=== PATIENT | female | born 1955 | race Caucasian/White ===

== ENCOUNTER 2019-09-10 19:10 | Inpatient (IN) | payer BC ==
[~2019-09-10] VITALS: Ht 142.2 cm; Wt 75.8 kg
[2019-09-10] MEDS ORDERED: IV RINGERS SOLUTION,LACTATED 1,000 ML IV SCH (19:14)
--- NOTE | 2019-09-10 19:31 | PHYS DOC ---
Past History Past Medical History: Anxiety, Arthritis, Bronchitis, Constipation, Dementia, Diabetes, Fibromyalgia, Hypertension, Hypothyroid, Schizophrenia Past Surgical History: Other Smoking: Cigarettes General Adult EDM: Chief Complaint: MEDICAL CLEARANCE HPI: HPI: "..They sent me here to get checked out.. I am weak.. and have been falling... " " I ve been seeing cats...they are not there..." " My cats are Wiskers and Sathish..."..." I am hearing things.. too" Patient is a 64 year old female who presents with above hx and complaints of weakness and falls. Pt. sent to [facility] for Behavioral issues. Pt. recent Dx of Dementia 1 yr ago, and frequent falls. Pt. also being evaluated for possible Hydrocephalus. Pt. in past year per her sister having increase gait problems, falls, incontinence of urine, and now increased behavior issues. Pt. has Schizo affective with Bipolar mood swings. Pt. recently admitted to [facility] after a fall. Pt. has seen Neuro Surgery at Dr. Ju Ricardo for the possible eval and need of shunt for Normal Pressure Hydrocephalus. Pt.has not had spinal tap of evaluation. Pt. recently having increase hallucinations of cats, paranoid delusions, auditory hallucination telling her she should not do, increased anxiety, . Pt. follows with Dr. Michele psychiatry at [facility], [facility], [facility], and DR. Sampson Wade. Patient has an active problem of the left of acquired hypothyroidism hypertension, recurrent major depressive disorder, chronic low back pain with sciatica, insomnia, obesity, memory deficits, and differential type schizophrenia, diabetes type 2, tobacco abuse, possible normal pressure hydrocephalus, bipolar affective disorder, frequent falls, dysphasia, smoking history of 40 pack years, obesity and deconditioning. Patient recently has had increase behavior issues consisting of verbal abuse, threats, depression and anxiety.. Patient sent to [facility] for admission to Senior behavioral unit under . Pt. COVID - TEST 08/29/19= NOT DETECTED. Review of Systems: Review of Systems: Constitutional: Denies fever or chills Eyes: Denies change in visual acuity HENT: Denies nasal congestion or sore throat Respiratory: Denies cough or shortness of breath Cardiovascular: Denies chest pain or edema GI: Denies abdominal pain, nausea, vomiting, bloody stools or diarrhea : Denies dysuria Musculoskeletal: Complains of lower back pain and joint pain Integument: Denies rash Neurologic: Denies headache,. Complains of generalized weakness and falling Endocrine: Denies polyuria or polydipsia Lymphatic: Denies swollen glands Psychiatric: Complains of depression, anxiety and hallucinations both visual and auditory Heart Score: HEART Score for Chest Pain: HEART Score for Chest Pain Response (Comments) Value History Slighlty/Non-Suspicious 0 ECG Normal 0 Age >45 - < 65 1 Risk Factors 1 or 2 Risk Factors 1 Troponin < Normal Limit 0 Total 2 Risk Factors: Risk Factors: DM, Current or recent (<one month) smoker, HTN, HLP, family history of CAD, obesity. Risk Scores: Score 0 - 3: 2.5% MACE over next 6 weeks - Discharge Home Score 4 - 6: 20.3% MACE over next 6 weeks - Admit for Clinical Observation Score 7 - 10: 72.7% MACE over next 6 weeks - Early Invasive Strategies Family History: Family History: Noncontributory to presentation Current Medications: Current Meds: See nursing for home meds Current Medications Medications (Trade) Dose Ordered Sig/Luis Start Time Stop Time Status Last Admin Dose Admin Lactated Ringer's 1,000 ml @ 100 mls/hr Q10H 09/10/19 19:14 09/11/19 05:13 UNV Allergies: Allergies: Allergic to penicillin Physical Exam: PE: Constitutional: Mild distress, non-toxic appearance. [] HENT: Normocephalic, atraumatic, bilateral external ears normal, oropharynx moist, no oral exudates, nose normal. [] Eyes: PERRLA, EOMI, conjunctiva normal, no discharge. [Glasses. Neck: Normal range of motion, no tenderness, supple, no stridor. [] Cardiovascular:Heart rate regular rhythm, no murmur [], PMI to Lt. Lungs & Thorax: Bilateral breath sounds equal at apexes with scattered wheeze on auscultation [] Abdomen: Bowel sounds normal, soft, no tenderness, no masses, no pulsatile masses. Obese Skin: Warm, dry, no erythema, no rash. [] Back: No tenderness, no CVA tenderness. [] Extremities: No tenderness, no cyanosis, no clubbing, ROM intact, bilateral ankle edema. [] Neurologic: Alert and oriented X 3, moves extremities on request, has wide gait, has distal sensory, no gross focal deficits noted. [] Psychologic: Affect anxious , some obvious memory issues, mood normal. Reports seeing cats that are not there and reports hearing voices EKG: EKG: My interpretation EKG shows a sinus rhythm at 68 bpm. No findings of acute STEMI of contralateral changes. [] Radiology/Procedures: Radiology/Procedures: [ Signed PATIENT: TRUDY BRANNON MACCOUNT: [id number] : 1955 LOCATION: ER AGE: 64 SEX: F EXAM STATUS: REG ER ORD. PHYSICIAN: DANITZA SHEARER MD REASON: dyspnea, eval . Aortic findings on non- contrast of lumbar PROCEDURE: CT ANGIO CHEST ABD PELVIS Exam: CT of chest, abdomen and pelvis with contrast INDICATION: Dyspnea TECHNIQUE: Sequential axial images through the chest, abdomen and pelvis obtained following the administration of 100 mL of Omni 350 IV contrast. Sagittal and coronal reformatted images were reconstructed from the axial data and reviewed. 3-D reformatted images were reconstructed from the axial data and reviewed. Comparisons: CT lumbar spine to the FINDINGS: Thoracic aorta has a normal course and caliber. No enlarged mediastinal lymph nodes. Heart size is normal. No pericardial effusion. Thoracic aorta has a normal course and caliber. Pulmonary artery is not enlarged. Airways are patent. Mild bronchial wall thickening is noted. Strandy opacities at dependent portion lungs likely representing atelectasis. No suspicious lung nodules are identified. Trace left-sided pleural effusion. Liver, spleen, and pancreas are unremarkable. There is a macroscopic fat-containing lesion within the right adrenal gland representing a myelolipoma. Kidneys demonstrate symmetric enhancement. No perinephric inflammation or hydronephrosis. No renal or ureteral calculi. Bladder is distended and appears thin-walled. Uterus is nonenlarged. No abnormal adnexal mass. Large and small bowel are unremarkable. Appendix is normal. No free intra-abdominal air or fluid. No obstruction. There is atherosclerotic plaque in the infrarenal abdominal aorta causing a short segment of moderate stenosis. Otherwise, the abdominal arterial vasculature is patent without evidence of stenosis, occlusion or aneurysm. No dissection. No enlarged intra-abdominal lymph nodes are identified. No suspicious osseous lesions or acute fractures. IMPRESSION: 1. No evidence for aortic aneurysm or dissection. 2. There is a focal area of moderate stenosis at the infrarenal abdominal aorta, likely correlating with abnormality on lumbar spine CT 3. Trace left-sided pleural effusion. 4. Other incidental findings as described above. Exposure: One or more of the following in the visualized dose reduction techniques were utilized for this examination: 1. Automated exposure control 2. Adjustment of the MA and/or KV according to patient size 3. Use of iterative of reconstructive technique Electronically signed by: Jaylan Malave MD (09/10/2019 10:16 PM) [id number] DICTATED AND SIGNED BY: JAYLAN MALAVE MD DATE: 09/10/192215 CC: DANITZA SHEARER MD; TAY WADE MD ~ ][place] [address] IMAGING REPORT Signed PATIENT: TRUDY BRANNON MACCOUNT: [id number] : 1955 LOCATION: ER AGE: 64 SEX: F EXAM STATUS: REG ER ORD. PHYSICIAN: DANITZA SHEARER MD REASON: Recent fall, lower back pain PROCEDURE: CT LUMBAR SPINE WO CONTRAST STUDY: 1. CT head without contrast 2. CT cervical spine without contrast 3. CT lumbar spine without contrast INDICATION: Fall. Low back pain. Neck pain. Mental status change. COMPARISON: None. TECHNIQUE: Axial CT imaging of the head, cervical spine and lumbar spine performed without the use of contrast. Coronal and sagittal reformats were obtained. One or more of the following individualized dose reduction techniques were utilized for this examination: 1. Automated exposure control 2. Adjustment of the mA and/or kV according to patient size 3. Use of iterative reconstruction technique. FINDINGS: Head: No acute intracranial hemorrhage. Schroeder-white matter differentiation is maintained. Cystic focus at the midline as seen on image 13 series 2, favored more likely volume averaging with the third ventricle than a pineal cyst. No midline shift. Ventriculomegaly on a background of parenchymal volume loss. Relative crowding of the sulci at the vertex. Intracranial atherosclerotic calcifications. White matter findings which are nonspecific but frequent seen in the setting of chronic microvascular ischemic change. No large scalp hematoma. Unremarkable orbits. Intact calvarium. Cervical spine: Degraded assessment due to patient body habitus particularly below the C5 level. No acute fracture or traumatic malalignment. Trace grade 1 anterolisthesis of C4 on C5. Discogenic arthrosis most notable at C5-C6 and C6-C7. Only mild facet degeneration at a few levels. Central canal stenosis at C5-C6 and C6-C7 appearing at least moderate. A rounded soft tissue density structure seen within the right aspect of the vallecula and is indistinguishable from the anterior margin of the epiglottis, image 41 series 4, this measures 1.7 x 1.2 x 1.6 cm. Probable right thyroid nodule at the upper pole, image 62 series 4 measuring approximately 1.3 cm. No dedicated follow-up is needed for this nodule based on size. No pathologically enlarged cervical chain lymph nodes. Retropharyngeal course of both internal carotid arteries. Possible emphysematous changes of the visualized lungs though degraded by motion artifact. Lumbar spine: No acute fracture, traumatic malalignment or aggressive osseous process. Lumbar levocurvature with the apex at L4. No advanced disc space narrowing. Scattered facet degeneration. Neural foraminal encroachment is greatest on the right at L4-L5 and on the left at L5-S1. Central canal stenosis at L4-L5 possibly moderate. Vascular calcifications. Linear bands of mineralization displaced from the aortic wall into the lumen such as seen on image 34 series 2. No aneurysmal dilatation. Fat-containing adrenal mass on the right consistent with a benign process and not requiring dedicated follow-up. Gallstones. IMPRESSION: Head: 1. No acute intracranial hemorrhage or CT evidence for an acute infarct. 2. Ventriculomegaly most likely on account of parenchymal volume loss. A less likely consideration given relative sulcal crowding at the vertex would be normal pressure hydrocephalus. Recommend correlation with patient's symptoms. Cervical spine: 1. Degraded study on account of body habitus. Taking this into consideration no acute osseous abnormality. 2. Degenerative changes greatest at C5-C6 and C6-C7. There appears to be at least moderate central canal stenosis at these levels but not fully characterized by noncontrast CT technique. As deemed necessary nonemergent MRI would better assess the degree of stenosis. 3. Masslike focus within the right aspect of the vallecula indistinguishable from the ventral margin of the epiglottis. This is not definitively a mucocele or retained secretions and eventual assessment with enhanced CT neck or direct inspection is recommended to exclude a mass. Lumbar spine: 1. No acute fracture or traumatic malalignment. 2. Degenerative changes greatest at L4-L5 and L5-S1 with moderate appearing central canal stenosis at L4-L5. 3. Gallstones. 4. Aortobiiliac atherosclerosis with thin intraluminal mineralization at the lower abdominal aorta. This is favored unlikely related to a dissection flap but there could be a degree of aortic stenosis. Eventual CT angiography would be useful to better characterize. Electronically signed by: LORETO CASTAÑEDA MD (09/10/2019 8:49 PM) [id number] DICTATED AND SIGNED BY: LORETO CASTAÑEDA MD DATE: 09/10/192048 CC: DANITZA SHEARER MD; TAY WADE MD ~ Course & Med Decision Making: Course & Med Decision Making Pertinent Labs and Imaging studies reviewed. (See chart for details) Pt. admitted to [facility] Dr. Braswell, Consult to Dr. Faith/Dr. Barrett for medical issues. Consult to Dr. Fernandez for gait and possible NPH. Impression: 1. Mental Status Change- Behavior 2. Hx. Dementia 3. Hx. Schizoaffective - Bipolar Type 4. Hx. HTN 5. Hx. Hypothyroid 6. Hx. Chronic Constipation 7. Hx. DM= Glucose 190,( ate before arrival) 8. Elev. Alk. Phos 117 9. Elevated CRP 7.6 10. Chronic Back Pain- Spinal stenosis and degenerative joint changes 11. Possible NPH- Normal Pressure Hydrocephalus ( No hx spinal taps) 12. Hallucinations- Auditory and Visual [] Dragon Disclaimer: Dragon Disclaimer: This electronic medical record was generated, in whole or in part, using a voice recognition dictation system. Departure Departure: Disposition: 01 HOME/RESIDENCE PRIOR TO ADM Condition: STABLE Referrals: TAY WADE MD (PCP) Justification of Admission: Justification of Admission: Justification of Admission Dx: Yes Altered Mental Status: Altered Mental Status Dragon Disclaimer This chart was dictated in whole or in part using Voice Recognition software in a busy, high-work load, and often noisy Emergency Department environment. It may contain unintended and wholly unrecognized errors or omissions. DANITZA SHEARER MD Sep 10, 2019 19:31
[2019-09-10 19:55] LABS: BASO % 0 % (0-3); EOS # 0.1 x10^3/uL (0.0-0.7); EOS % 1 % (0-3); HEMATOCRIT 46.3 % (36.0-47.0); HEMOGLOBIN 15.4 g/dL (12.0-15.5); LYMPH # 2.4 x10^3/uL (1.0-4.8); LYMPH % 25 % (24-48); MEAN CORPUSCULAR HEMOGLOBIN 30 pg (25-35); MEAN CORPUSCULAR HGB CONC 33 g/dL (31-37); MEAN CORPUSCULAR VOLUME 90 fL (79-100); MONO # 0.6 x10^3/uL (0.0-1.1); MONO % 6 % (0-9); NEUT # 6.5 x10^3uL (1.8-7.7); NEUT % 68 % (31-73); PLATELET COUNT 228 x10^3/uL (140-400); RED BLOOD COUNT 5.14 x10^6/uL (3.50-5.40); WHITE BLOOD COUNT 9.6 x10^3/uL (4.0-11.0)
[2019-09-10 20:01] LABS: CALCIUM 8.5 mg/dL (8.5-10.1); CREATININE 0.8 mg/dL (0.6-1.0); GFR 72.4; POTASSIUM 3.8 mmol/L (3.5-5.1)
[2019-09-10 20:16] LABS: ALBUMIN 3.3 g/dL (3.4-5.0); C REACTIVE PROTEIN 7.6 mg/L (0-3.3); DIRECT BILIRUBIN 0.1 mg/dL (0.0-0.2); MAGNESIUM 2.2 mg/dL (1.8-2.4); TOTAL BILIRUBIN 0.4 mg/dL (0.2-1.0); TOTAL PROTEIN 6.4 g/dL (6.4-8.2)
[2019-09-10] MEDS ORDERED: AMLO10TA8 PO (20:24)
[2019-09-10] MEDS ORDERED: ARIP5TAB13 PO (20:24)
[2019-09-10] MEDS ORDERED: LEVO50TA5 PO (20:24)
[2019-09-10] MEDS ORDERED: DONE10TA7 PO (20:24)
[2019-09-10] MEDS ORDERED: ESCITALOPRAM OX10 MG PO (20:24)
[2019-09-10] MEDS ORDERED: POLY2500 PO (20:24)
[2019-09-10] MEDS ORDERED: LISI40TA PO (20:24)
[2019-09-10] MEDS ORDERED: DOCU100C28 PO (20:24)
[2019-09-10] MEDS ORDERED: ACET500T68 PO (20:24)
[2019-09-10] MEDS ORDERED: ACETAMINOPHEN 325 MG TABLET PO PRN ×2 (20:30→23:30)
--- NOTE | 2019-09-10 20:52 | RAD ---
STUDY: 1. CT head without contrast 2. CT cervical spine without contrast 3. CT lumbar spine without contrast INDICATION: Fall. Low back pain. Neck pain. Mental status change. COMPARISON: None. TECHNIQUE: Axial CT imaging of the head, cervical spine and lumbar spine performed without the use of contrast. Coronal and sagittal reformats were obtained. One or more of the following individualized dose reduction techniques were utilized for this examination: 1. Automated exposure control 2. Adjustment of the mA and/or kV according to patient size 3. Use of iterative reconstruction technique. FINDINGS: Head: No acute intracranial hemorrhage. Schroeder-white matter differentiation is maintained. Cystic focus at the midline as seen on image 13 series 2, favored more likely volume averaging with the third ventricle than a pineal cyst. No midline shift. Ventriculomegaly on a background of parenchymal volume loss. Relative crowding of the sulci at the vertex. Intracranial atherosclerotic calcifications. White matter findings which are nonspecific but frequent seen in the setting of chronic microvascular ischemic change. No large scalp hematoma. Unremarkable orbits. Intact calvarium. Cervical spine: Degraded assessment due to patient body habitus particularly below the C5 level. No acute fracture or traumatic malalignment. Trace grade 1 anterolisthesis of C4 on C5. Discogenic arthrosis most notable at C5-C6 and C6-C7. Only mild facet degeneration at a few levels. Central canal stenosis at C5-C6 and C6-C7 appearing at least moderate. A rounded soft tissue density structure seen within the right aspect of the vallecula and is indistinguishable from the anterior margin of the epiglottis, image 41 series 4, this measures 1.7 x 1.2 x 1.6 cm. Probable right thyroid nodule at the upper pole, image 62 series 4 measuring approximately 1.3 cm. No dedicated follow-up is needed for this nodule based on size. No pathologically enlarged cervical chain lymph nodes. Retropharyngeal course of both internal carotid arteries. Possible emphysematous changes of the visualized lungs though degraded by motion artifact. Lumbar spine: No acute fracture, traumatic malalignment or aggressive osseous process. Lumbar levocurvature with the apex at L4. No advanced disc space narrowing. Scattered facet degeneration. Neural foraminal encroachment is greatest on the right at L4-L5 and on the left at L5-S1. Central canal stenosis at L4-L5 possibly moderate. Vascular calcifications. Linear bands of mineralization displaced from the aortic wall into the lumen such as seen on image 34 series 2. No aneurysmal dilatation. Fat-containing adrenal mass on the right consistent with a benign process and not requiring dedicated follow-up. Gallstones. IMPRESSION: Head: 1. No acute intracranial hemorrhage or CT evidence for an acute infarct. 2. Ventriculomegaly most likely on account of parenchymal volume loss. A less likely consideration given relative sulcal crowding at the vertex would be normal pressure hydrocephalus. Recommend correlation with patient's symptoms. Cervical spine: 1. Degraded study on account of body habitus. Taking this into consideration no acute osseous abnormality. 2. Degenerative changes greatest at C5-C6 and C6-C7. There appears to be at least moderate central canal stenosis at these levels but not fully characterized by noncontrast CT technique. As deemed necessary nonemergent MRI would better assess the degree of stenosis. 3. Masslike focus within the right aspect of the vallecula indistinguishable from the ventral margin of the epiglottis. This is not definitively a mucocele or retained secretions and eventual assessment with enhanced CT neck or direct inspection is recommended to exclude a mass. Lumbar spine: 1. No acute fracture or traumatic malalignment. 2. Degenerative changes greatest at L4-L5 and L5-S1 with moderate appearing central canal stenosis at L4-L5. 3. Gallstones. 4. Aortobiiliac atherosclerosis with thin intraluminal mineralization at the lower abdominal aorta. This is favored unlikely related to a dissection flap but there could be a degree of aortic stenosis. Eventual CT angiography would be useful to better characterize. Electronically signed by: LORETO CASTAÑEDA MD (09/10/2019 8:49 PM) [id number]
--- NOTE | 2019-09-10 20:56 | RAD ---
Study: CR CHEST AP ONLY Indication: Recent falls. Chest pain. Comparison: None. Findings: The right aspect of the chest is incorrectly labeled as the left. The cardiomediastinal silhouette is within normal limits for size. Aortic vascular calcifications. Small pleural effusion on the left and left more so than right basilar volume loss. Mildly plethoric central vasculature and there are Rashel B lines. No pneumothorax or lobar consolidation. Impression: Interstitial edema and a small left pleural effusion. Electronically signed by: LORETO CASTAÑEDA MD (09/10/2019 8:53 PM) [id number]
[2019-09-10] MEDS ORDERED: IOHEXOL 350 MG/ML 100 ML VIAL. IV ONE (21:30)
[2019-09-10 21:43] LABS: BARBITURATES NEG (NEG); BENZODIAZEPINES NEG (NEG); CANNABINOIDS NEG (NEG); COCAINE NEG (NEG); METHADONE NEG (NEG); OPIATES NEG (NEG); PHENCYCLIDINE NEG (NEG)
[2019-09-10 21:48] LABS: AMPHETAMINE/METHAMPHETAMINE NEG (NEG)
[2019-09-10 22:06] LABS: BACTERIA,URINE 0 /HPF (0-FEW); BILIRUBIN,URINE NEG (NEG); CLARITY,URINE CLEAR; COLOR,URINE YELLOW; GLUCOSE,URINE NEG (NEG); NITRITE,URINE NEG (NEG); RBC,URINE 0 /HPF (0-2); SQUAMOUS EPITHELIAL CELL,UR OCC /LPF; UROBILINOGEN,URINE 0.2 mg/dL (0.2 mg/dL); WBC,URINE 0 /HPF (0-4)
--- NOTE | 2019-09-10 22:19 | RAD ---
Exam: CT of chest, abdomen and pelvis with contrast INDICATION: Dyspnea TECHNIQUE: Sequential axial images through the chest, abdomen and pelvis obtained following the administration of 100 mL of Omni 350 IV contrast. Sagittal and coronal reformatted images were reconstructed from the axial data and reviewed. 3-D reformatted images were reconstructed from the axial data and reviewed. Comparisons: CT lumbar spine to the FINDINGS: Thoracic aorta has a normal course and caliber. No enlarged mediastinal lymph nodes. Heart size is normal. No pericardial effusion. Thoracic aorta has a normal course and caliber. Pulmonary artery is not enlarged. Airways are patent. Mild bronchial wall thickening is noted. Strandy opacities at dependent portion lungs likely representing atelectasis. No suspicious lung nodules are identified. Trace left-sided pleural effusion. Liver, spleen, and pancreas are unremarkable. There is a macroscopic fat-containing lesion within the right adrenal gland representing a myelolipoma. Kidneys demonstrate symmetric enhancement. No perinephric inflammation or hydronephrosis. No renal or ureteral calculi. Bladder is distended and appears thin-walled. Uterus is nonenlarged. No abnormal adnexal mass. Large and small bowel are unremarkable. Appendix is normal. No free intra-abdominal air or fluid. No obstruction. There is atherosclerotic plaque in the infrarenal abdominal aorta causing a short segment of moderate stenosis. Otherwise, the abdominal arterial vasculature is patent without evidence of stenosis, occlusion or aneurysm. No dissection. No enlarged intra-abdominal lymph nodes are identified. No suspicious osseous lesions or acute fractures. IMPRESSION: 1. No evidence for aortic aneurysm or dissection. 2. There is a focal area of moderate stenosis at the infrarenal abdominal aorta, likely correlating with abnormality on lumbar spine CT 3. Trace left-sided pleural effusion. 4. Other incidental findings as described above. Exposure: One or more of the following in the visualized dose reduction techniques were utilized for this examination: 1. Automated exposure control 2. Adjustment of the MA and/or KV according to patient size 3. Use of iterative of reconstructive technique Electronically signed by: Jaylan Han MD (09/10/2019 10:16 PM) [id number]
[2019-09-10] MEDS ORDERED: MAG HYDROX/AL HYDROX/SIMETH 30 ML ORAL.SUSP PO PRN (23:30)
[2019-09-10] MEDS ORDERED: METHYL SALICYLATE/MENTHOL TOPICAL OINTMENT 57GM TUBE. TP PRN (23:30)
[2019-09-10] MEDS ORDERED: MAGNESIUM HYDROXIDE 2,400 MG/30 ML ORAL.SUSP. PO PRN (23:30)
[2019-09-10 23:41] VITALS: BP 165/61
[2019-09-10] MEDS ORDERED: POLYETHYLENE GLYCOL 3350 17 GM PACKET. PO PRN (23:45)
[2019-09-10] MEDS ORDERED: ACETAMINOPHEN 500 MG TABLET PO PRN (23:45)
--- NOTE | 2019-09-11 04:20 | EKG ---
[address] [address] Test Date: 2019-09-10 Test Time: 19:42:24 Pat Name: TRUDY BRANNON Department: Room: [address] [place] [address] Gender: F Physicist Acoustics: : 1955 Requested By: DANITZA SHEARER Order Number: [id number] Reading MD: Hima Nelson MD Measurements Intervals [place] Rate: 68 P: 54 DE: 148 QRS: 46 QRSD: 88 T: 64 QT: 422 QTc: 449 Interpretive Statements SINUS RHYTHM Electronically Signed On 09-13-2019 13:17:03 CDT by Hima Nelson MD
[2019-09-11 06:05] VITALS: BP 169/76
[2019-09-11] MEDS: LEVOTHYROXINE 50 MCG TABLET PO SCH (06:12)
[2019-09-11] MEDS: IPRATRPIUM/ALBUTEROL 0.5/2.5MG 3 ML NEBU. NEB SCH ×4 (08:00→20:00)
[2019-09-11] MEDS: DOCUSATE SODIUM 100 MG CAPSULE PO SCH ×2 (09:11→20:26)
[2019-09-11] MEDS: CITALOPRAM 20 MG TABLET. PO SCH (09:11)
[2019-09-11] MEDS: LISINOPRIL 20 MG TABLET PO SCH (09:12)
[2019-09-11] MEDS: amLODIPine BESYLATE 10 MG TABLET PO SCH (09:12)
[2019-09-11] MEDS: NICOTINE 21MG PATCH. TD SCH (09:13)
--- NOTE | 2019-09-11 13:13 | CONS ---
DATE OF CONSULTATION: 09/11/2019 ATTENDING PHYSICIANS: Dr. Braswell and Dr. Garcia. REASON FOR CONSULTATION: We are asked to see this patient for medical consultation. HISTORY OF PRESENT ILLNESS: The patient is a 64-year-old female admitted from [place], [place]. She has a longstanding history of schizoaffective disorder along with dementia. She is here for evaluation and treatment and adjustment of medication. PAST MEDICAL HISTORY: Significant for COPD, she is a smoker, gastroesophageal reflux disease, underlying schizoaffective disorder and increased confusion. She smokes 2 packs of cigarettes daily. She is not a drinker. CURRENT MEDICATIONS: Reviewed. She is scheduled to take Tylenol, Mylanta, albuterol, amlodipine, Abilify, Celexa, docusate, Aricept, Synthroid, lisinopril, milk of magnesia, analgesic balm, Nicoderm patch, and MiraLax. ALLERGIES: She has allergies to PENICILLIN, exact cause is unclear. SOCIAL HISTORY: Smoking history as noted. FAMILY HISTORY: Unobtainable. REVIEW OF SYSTEMS: Unobtainable. She remains very confused. PHYSICAL EXAMINATION: GENERAL: When I saw her, this is a pleasant, confused female. She is not in any acute distress. INITIAL VITAL SIGNS: Showed a blood pressure of 130/76, pulse is 89 and regular, temperature 98.3 degrees Fahrenheit, oxygen saturation 95% on room air. Her weight was 77.4 kilograms. HEENT: Head is without trauma. Pupils are reactive. Sclerae are nonicteric. The oropharynx is clear. NECK: Supple, no bruits identified. LUNGS: Otherwise clear. CARDIOVASCULAR: Showed regular heart tones. No gallops, no murmurs. Peripheral pulses are palpable and full. ABDOMEN: Soft, scaphoid, nontender, no organomegaly. Bowel sounds were hypoactive. EXTREMITIES: Show trace edema. NEUROLOGIC: Focally intact. Speech is fluent. She remains confused and could not give further details regarding her history. LABORATORY STUDIES: On admission, her hemoglobin is 15.4 g/dL with a white count of 9600. Electrolytes are within normal range. Nonfasting blood sugar 190. Cardiac enzymes were negative for coronary ischemia. Transaminases are all within normal range. ASSESSMENT: 1. This 64-year-old female has profound dementia. 2. Schizoaffective disorder. 3. Essential hypertension. 4. Chronic obstructive pulmonary disease from her 2-pack a day tobacco use. RECOMMENDATIONS: 1. I certainly agree with a nicotine patch. 2. Meds reviewed. 3. She is medically stable at this time. Thank you again for asking me to see the patient for medical consultation. We shall gladly follow along during the course of inpatient stay. MARILU GARCIA MD DR: JENNIFER/jacquelin JOB#: [id number] / [id number] POONAM Liriano MD
[2019-09-11 15:55] VITALS: BP 164/79
[2019-09-11] MEDS: DONEPEZIL HCL 10 MG TABLET PO SCH (20:26)
[2019-09-11] MEDS: ARIPiprazole 5 MG TABLET PO SCH (20:26)
--- NOTE | 2019-09-11 22:17 | PDOC ---
Exam Note: Carlos Note: Please also refer to the separate dictated note~for this date of service dictated separately.~Patient seen individually. Discussed the patient with Nursing staff reviewed the chart.~Reviewed interim history and current functioning. Reviewed vital signs,~Labs/ Radiology~and current medications noted below. Continue current treatment with the changes noted in the dictated addendum note Assessment: Vital Signs/I&O: Vital Signs Date Time Temp Pulse Resp B/P (MAP) Pulse Ox O2 Delivery O2 Flow Rate FiO2 09/11/19 15:55 97.8 107 20 164/79 (107) 91 09/11/19 06:05 Room Air I & O 09/10/19 09/10/19 09/11/19 15:00 23:00 07:00 Intake Total 300 ml 0 ml Balance 300 ml 0 ml Current Medications: Meds: Current Medications Medications (Trade) Dose Ordered Sig/Luis Route PRN Reason Start Time Stop Time Status Last Admin Dose Admin Aripiprazole (Abilify) 5 mg HS PO 09/11/19 21:00 09/11/19 20:26 Donepezil HCl (Aricept) 10 mg HS PO 09/11/19 21:00 09/11/19 20:26 Citalopram Hydrobromide (CeleXA) 20 mg DAILY PO 09/11/19 09:00 09/11/19 09:11 Amlodipine Besylate (Norvasc) 10 mg DAILY PO 09/11/19 09:00 09/11/19 09:12 Docusate Sodium (Colace) 100 mg BID PO 09/11/19 09:00 09/11/19 20:26 Levothyroxine Sodium (Synthroid) 50 mcg DAILY06 PO 09/11/19 06:00 09/11/19 06:12 Lisinopril (Prinivil) 40 mg DAILY PO 09/11/19 09:00 09/11/19 09:12 I have reviewed the current psychotropics carefully including drug interactions. Risk benefit ratio favors no change other than as noted in my dictated progress note. POONAM TAO MD Sep 11, 2019 22:17
[2019-09-12 00:06] LABS: HEMOGLOBIN A1C 6.1 % (4.8-5.6)
[2019-09-12] MEDS: LEVOTHYROXINE 50 MCG TABLET PO SCH (05:22)
[2019-09-12 06:11] VITALS: BP 146/78
[2019-09-12 08:21] LABS: BASO % 1 % (0-3); EOS # 0.1 x10^3/uL (0.0-0.7); EOS % 1 % (0-3); HEMATOCRIT 47.1 % (36.0-47.0); HEMOGLOBIN 15.6 g/dL (12.0-15.5); LYMPH # 1.7 x10^3/uL (1.0-4.8); LYMPH % 22 % (24-48); MEAN CORPUSCULAR HEMOGLOBIN 30 pg (25-35); MEAN CORPUSCULAR HGB CONC 33 g/dL (31-37); MEAN CORPUSCULAR VOLUME 90 fL (79-100); MONO # 0.5 x10^3/uL (0.0-1.1); MONO % 7 % (0-9); NEUT # 5.3 x10^3uL (1.8-7.7); NEUT % 70 % (31-73); PLATELET COUNT 208 x10^3/uL (140-400); RED BLOOD COUNT 5.25 x10^6/uL (3.50-5.40); RED CELL DISTRIBUTION WIDTH 13.7 % (11.5-14.5); WHITE BLOOD COUNT 7.7 x10^3/uL (4.0-11.0)
[2019-09-12 08:31] LABS: ALBUMIN 3.3 g/dL (3.4-5.0); ALBUMIN/GLOBULIN RATIO 0.9 (1.0-1.7); CALCIUM 8.7 mg/dL (8.5-10.1); CREATININE 0.5 mg/dL (0.6-1.0); GFR 124.6; POTASSIUM 4.2 mmol/L (3.5-5.1); TOTAL BILIRUBIN 0.5 mg/dL (0.2-1.0); TOTAL PROTEIN 6.9 g/dL (6.4-8.2)
[2019-09-12] MEDS: NICOTINE 21MG PATCH. TD SCH (09:00)
[2019-09-12] MEDS: CITALOPRAM 20 MG TABLET. PO SCH (09:32)
[2019-09-12] MEDS: DOCUSATE SODIUM 100 MG CAPSULE PO SCH ×2 (09:32→19:50)
[2019-09-12] MEDS: amLODIPine BESYLATE 10 MG TABLET PO SCH (09:32)
[2019-09-12] MEDS: LISINOPRIL 20 MG TABLET PO SCH (09:33)
--- NOTE | 2019-09-12 13:52 | HP ---
ADMIT DATE: 09/11/2019 PSYCHIATRIC ADMISSION HISTORY/EVALUATION This late entry date of service 09/11/2019 covers elements not covered in my initial note. SUBJECTIVE: I met with the patient evening of 09/11/2019, previously discussed with nursing staff and even before that with Glenna Villegas, health service coordinator. IDENTIFYING DATA: The patient is a 64-year-old female referred to us by her primary care physician on account of acute exacerbation of her schizoaffective disorder, bipolar type. Reportedly, the patient has not been taking her prescribed psychotropics and has been paranoid. She thought the voip technician was going to kill her. She was delusional, having auditory hallucinations telling her to do things she knows she should not do. She has been anxious, overwhelmed, does not always recognize her , seems to be getting more confused as well. She has failed outpatient psychiatric interventions. Behaviors deemed dangerous, unmanageable at home with . Having failed outpatient psychiatric intervention, she is referred for inpatient psychiatric stabilization. CHIEF COMPLAINT: "Yes, I hear voices." HISTORY OF PRESENT ILLNESS: Reportedly, the patient has a long history of schizoaffective disorder, bipolar type and has been treated outpatient. Additionally, she may have questionable borderline intellectual functioning. Nevertheless, she has been living at home and recently getting more paranoid, refusing her medications, having sleep and appetite changes, having active hallucinations. No active suicidal or homicidal ideation, but the confusion has been compounding the above symptoms resulting in this referral. She does have a history of mood swings. PAST PSYCHIATRIC HISTORY: As above. MEDICAL HISTORY: Hypothyroidism, hypertension, chronic low back pain, obesity, type 2 diabetes mellitus, tobacco abuse, history of normal pressure hydrocephalus, dysphagia, tobacco abuse, current 2 packets per day; frequent falls. ACCU-CHEKS: B.i.d. DIET: Regular, diabetic, takes medications whole. Ambulates ad regan with walker. UA on 09/10/2019 was negative. CODE STATUS: Full code. ALLERGIES: PENICILLIN. CURRENT PSYCHOTROPICS: Abilify 5 mg at bedtime, Aricept 10 mg a day, Lexapro 10 mg a day. FAMILY HISTORY: Noncontributory. SOCIAL HISTORY: No history of alcohol, drug abuse, physical, sexual or elder abuse. She is not known to be a perpetrator. REACTION TO HOSPITALIZATION: The patient accepting of it. ASSETS: Supportive family and outpatient treatment. REVIEW OF SYSTEMS: No CV, , pulmonary, eye system symptoms on review. The patient frequently is removing the mask she has been provided given COVID-19 precautions. MENTAL STATUS EXAMINATION: The patient is oriented to herself and situation. Speech has some latency, coherent. Abstraction fair. Computation impaired. Language function intact. Attention span short. She does have short term memory deficits. Somewhat paranoid, suspicious, admits to hallucinations. No active suicidal or homicidal ideation. Attention span is short. IMPRESSION: Schizoaffective disorder, bipolar type, mixed with psychotic features, mild cognitive impairment; anxiety disorder, unspecified; impulse control disorder, unspecified. Rest as above. PLAN: Admit to Geropsychiatry Unit at [facility]. I will see the patient daily individually from a psychiatric standpoint. Medical followup with Dr. Barrett/Dr. Walker. We will get past psychiatric records for clarification of diagnosis and past psychotropics. We will make further adjustments in her psychotropics post baseline assessment. We will consider Depakote as a mood stabilizer. Consider increasing Abilify or changing to Geodon, maintaining Aricept for now. ESTIMATED LENGTH OF STAY: 10-12 days. DISPOSITION: Plans possibly back home or a higher level of care depending on her response to treatment. MAN Yuliana TAO MD DR: SEMAJ/jacquelin JOB#: [id number] / [id number]
[2019-09-12 17:01] VITALS: BP 176/65
[2019-09-12] MEDS: ARIPiprazole 5 MG TABLET PO SCH (19:50)
[2019-09-12] MEDS: DONEPEZIL HCL 10 MG TABLET PO SCH (19:50)
--- NOTE | 2019-09-12 22:29 | PDOC ---
Exam Note: Carlos Note: Please also refer to the separate dictated note~for this date of service dictated separately.~Patient seen individually. Discussed the patient with Nursing staff reviewed the chart.~Reviewed interim history and current functioning. Reviewed vital signs,~Labs/ Radiology~and current medications noted below. Continue current treatment with the changes noted in the dictated addendum note Assessment: Vital Signs/I&O: Vital Signs Date Time Temp Pulse Resp B/P (MAP) Pulse Ox O2 Delivery O2 Flow Rate FiO2 09/12/19 17:01 98.2 58 18 176/65 (102) 98 09/12/19 06:11 Room Air I & O 09/11/19 09/11/19 09/12/19 15:00 23:00 07:00 Intake Total 720 ml 600 ml Balance 720 ml 600 ml Labs: Laboratory Tests Test 09/12/19 08:04 White Blood Count 7.7 x10^3/uL (4.0-11.0) Red Blood Count 5.25 x10^6/uL (3.50-5.40) Hemoglobin 15.6 g/dL (12.0-15.5) H Hematocrit 47.1 % (36.0-47.0) H Mean Corpuscular Volume 90 fL (79-100) Mean Corpuscular Hemoglobin 30 pg (25-35) Mean Corpuscular Hemoglobin Concent 33 g/dL (31-37) Red Cell Distribution Width 13.7 % (11.5-14.5) Platelet Count 208 x10^3/uL (140-400) Neutrophils (%) (Auto) 70 % (31-73) Lymphocytes (%) (Auto) 22 % (24-48) L Monocytes (%) (Auto) 7 % (0-9) Eosinophils (%) (Auto) 1 % (0-3) Basophils (%) (Auto) 1 % (0-3) Neutrophils # (Auto) 5.3 x10^3uL (1.8-7.7) Lymphocytes # (Auto) 1.7 x10^3/uL (1.0-4.8) Monocytes # (Auto) 0.5 x10^3/uL (0.0-1.1) Eosinophils # (Auto) 0.1 x10^3/uL (0.0-0.7) Basophils # (Auto) 0.0 x10^3/uL (0.0-0.2) Sodium Level 140 mmol/L (136-145) Potassium Level 4.2 mmol/L (3.5-5.1) Chloride Level 103 mmol/L (98-107) Carbon Dioxide Level 29 mmol/L (21-32) Anion Gap 8 (6-14) Blood Urea Nitrogen 6 mg/dL (7-20) L Creatinine 0.5 mg/dL (0.6-1.0) L Estimated GFR (Cockcroft-Gault) 124.6 BUN/Creatinine Ratio 12 (6-20) Glucose Level 116 mg/dL (70-99) H Calcium Level 8.7 mg/dL (8.5-10.1) Total Bilirubin 0.5 mg/dL (0.2-1.0) Aspartate Amino Transferase (AST) 14 U/L (15-37) L Alanine Aminotransferase (ALT) 13 U/L (14-59) L Alkaline Phosphatase 110 U/L (46-116) Total Protein 6.9 g/dL (6.4-8.2) Albumin 3.3 g/dL (3.4-5.0) L Albumin/Globulin Ratio 0.9 (1.0-1.7) L Current Medications: I have reviewed the current psychotropics carefully including drug interactions. Risk benefit ratio favors no change other than as noted in my dictated progress note. Diagnosis: Problems: (1) Schizoaffective disorder, bipolar type (2) Bipolar disorder, curr episode mixed, severe, with psychotic features (3) Mild cognitive impairment POONAM TAO MD Sep 12, 2019 22:29
[2019-09-13] MEDS: LEVOTHYROXINE 50 MCG TABLET PO SCH (05:58)
[2019-09-13 06:03] VITALS: BP 171/84
[2019-09-13] MEDS: DOCUSATE SODIUM 100 MG CAPSULE PO SCH ×2 (08:36→20:37)
[2019-09-13] MEDS: CITALOPRAM 20 MG TABLET. PO SCH (08:36)
[2019-09-13] MEDS: amLODIPine BESYLATE 10 MG TABLET PO SCH (08:37)
[2019-09-13] MEDS: LISINOPRIL 20 MG TABLET PO SCH (08:38)
[2019-09-13] MEDS: NICOTINE 21MG PATCH. TD SCH (09:00)
[2019-09-13 16:14] VITALS: BP 172/74
[2019-09-13] MEDS: DONEPEZIL HCL 10 MG TABLET PO SCH (20:37)
[2019-09-13] MEDS: ARIPiprazole 10 MG TABLET PO SCH (20:37)
--- NOTE | 2019-09-13 22:26 | PDOC ---
Exam Note: Carlos Note: Please also refer to the separate dictated note~for this date of service dictated separately.~Patient seen individually. Discussed the patient with Nursing staff reviewed the chart.~Reviewed interim history and current functioning. Reviewed vital signs,~Labs/ Radiology~and current medications noted below. Continue current treatment with the changes noted in the dictated addendum note Assessment: Vital Signs/I&O: Vital Signs Date Time Temp Pulse Resp B/P (MAP) Pulse Ox O2 Delivery O2 Flow Rate FiO2 09/13/19 16:14 97.6 61 20 172/74 (106) 93 09/12/19 06:11 Room Air I & O 09/12/19 09/12/19 09/13/19 15:00 23:00 07:00 Intake Total 600 ml 580 ml Balance 600 ml 580 ml Current Medications: Meds: Current Medications Medications (Trade) Dose Ordered Sig/Luis Route PRN Reason Start Time Stop Time Status Last Admin Dose Admin Aripiprazole (Abilify) 10 mg QHS PO 09/13/19 21:00 09/13/19 20:37 I have reviewed the current psychotropics carefully including drug interactions. Risk benefit ratio favors no change other than as noted in my dictated progress note. Diagnosis: Problems: (1) Anxiety disorder, unspecified (2) Impulse control disorder, unspecified (3) Schizoaffective disorder, bipolar type (4) Mild cognitive impairment (5) Bipolar disorder, curr episode mixed, severe, with psychotic features POONAM TAO MD Sep 13, 2019 22:26
[2019-09-14] MEDS: LEVOTHYROXINE 50 MCG TABLET PO SCH (06:27)
[2019-09-14 06:35] VITALS: BP 136/81
[2019-09-14] MEDS: CITALOPRAM 20 MG TABLET. PO SCH (08:37)
[2019-09-14] MEDS: amLODIPine BESYLATE 10 MG TABLET PO SCH (08:37)
[2019-09-14] MEDS: LISINOPRIL 20 MG TABLET PO SCH (08:37)
[2019-09-14] MEDS: NICOTINE 21MG PATCH. TD SCH (08:38)
[2019-09-14] MEDS: DOCUSATE SODIUM 100 MG CAPSULE PO SCH ×2 (08:38→20:14)
[2019-09-14 15:49] VITALS: BP 115/85
[2019-09-14] MEDS: DONEPEZIL HCL 10 MG TABLET PO SCH (20:14)
[2019-09-14] MEDS: ARIPiprazole 10 MG TABLET PO SCH (20:14)
[2019-09-14] MEDS: DIVALPROEX ER 500 MG TAB.ER.24H PO SCH (20:16)
--- NOTE | 2019-09-14 22:22 | PN ---
DATE: 09/12/2019 PSYCHIATRIC PROGRESS NOTE This late entry 09/12/2019 covers the elements not covered in my initial note. SUBJECTIVE: I met with the patient in the evening of 09/12/2019. Per PASTORA Mckeon, the patient slept 6 hours previous night. She was somewhat more confused in the evening, suspicious of her medications, paranoid, and took them later. REVIEW OF SYSTEMS: Ambulation impaired with walker. No CV, , pulmonary, eye system symptoms on review. Reliability varies. MENTAL STATUS EXAM: Oriented to herself and situation. Speech has some latency, coherent. Abstraction fair, computation impaired, language function intact, attention span short. As I met with her at length, she was quite paranoid. No suicidal ideation. Denies active hallucinations. LABORATORY DATA: Reviewed. IMPRESSION: Schizoaffective disorder, bipolar type, mixed with psychotic features. Rest unchanged. PLAN: No change from initial note. Continue Celexa along with Aricept, which was 10 mg at bedtime, Abilify may need to be increased, may need to also add a mood stabilizer in due course. Past psychiatric records have been requested. MAN Yuliana TAO MD DR: SEMAJ/jacquelin JOB#: [id number] / [id number]
--- NOTE | 2019-09-14 22:22 | PDOC ---
Exam Note: Carlos Note: Please also refer to the separate dictated note~for this date of service dictated separately.~Patient seen individually. Discussed the patient with Nursing staff reviewed the chart.~Reviewed interim history and current functioning. Reviewed vital signs,~Labs/ Radiology~and current medications noted below. Continue current treatment with the changes noted in the dictated addendum note Assessment: Vital Signs/I&O: Vital Signs Date Time Temp Pulse Resp B/P (MAP) Pulse Ox O2 Delivery O2 Flow Rate FiO2 09/14/19 15:49 98.1 53 20 115/85 (95) 97 09/12/19 06:11 Room Air I & O 09/13/19 09/13/19 09/14/19 15:00 23:00 07:00 Intake Total 540 ml 360 ml 100 ml Balance 540 ml 360 ml 100 ml Current Medications: Meds: Current Medications Medications (Trade) Dose Ordered Sig/Luis Route PRN Reason Start Time Stop Time Status Last Admin Dose Admin Divalproex Sodium (Depakote Er) 500 mg QHS PO 09/14/19 21:00 09/14/19 20:16 I have reviewed the current psychotropics carefully including drug interactions. Risk benefit ratio favors no change other than as noted in my dictated progress note. Diagnosis: Problems: (1) Schizoaffective disorder, bipolar type (2) Mild cognitive impairment (3) Bipolar disorder, curr episode mixed, severe, with psychotic features (4) Impulse control disorder, unspecified (5) Anxiety disorder, unspecified POONAM TAO MD Sep 14, 2019 22:22
--- NOTE | 2019-09-14 22:24 | PN ---
DATE: 09/13/2019 PSYCHIATRIC PROGRESS NOTE This late entry 09/13/2019 covers elements not covered in my initial note. SUBJECTIVE: I met with the patient in the evening and staffed at a treatment team meeting with the entire team in the morning. Per Linda RN, the patient slept 6 hours previous night, appetite 75%. She remains quite paranoid regarding medications. Per Tiffani, activity therapy staff, she attended 1 group on Friday, remains paranoid, suspicious. REVIEW OF SYSTEMS: Ambulation impaired with walker. No CV, , pulmonary, eye system symptoms on review. MENTAL STATUS EXAMINATION: Oriented to herself and situation. Speech has some latency, coherent. Abstraction fair, computation impaired, language function intact. She is quite paranoid, suspicious, withdrawn at times. LABORATORY DATA: Reviewed. IMPRESSION: Schizoaffective disorder, bipolar type, mixed with psychotic features. Rest unchanged. PLAN: Continue psychotropics from initial note. Increase Abilify from 5 mg a day to 10 mg a day. Consider adding Depakote as a mood stabilizer. I have reviewed her past psychiatric records received from Dr. Michele with a diagnosis of schizophrenia. There were about 30 pages of these records that I reviewed. POONAM TAO MD DR: SEMAJ/jacquelin JOB#: [id number] / [id number]
[2019-09-15] MEDS: LEVOTHYROXINE 50 MCG TABLET PO SCH (05:48)
[2019-09-15 06:05] VITALS: BP 116/71
[2019-09-15 06:29] LABS: BASO % 0 % (0-3); EOS # 0.1 x10^3/uL (0.0-0.7); EOS % 1 % (0-3); HEMATOCRIT 48.2 % (36.0-47.0); HEMOGLOBIN 16.1 g/dL (12.0-15.5); LYMPH # 2.1 x10^3/uL (1.0-4.8); LYMPH % 27 % (24-48); MEAN CORPUSCULAR HEMOGLOBIN 30 pg (25-35); MEAN CORPUSCULAR HGB CONC 33 g/dL (31-37); MEAN CORPUSCULAR VOLUME 89 fL (79-100); MONO # 0.6 x10^3/uL (0.0-1.1); MONO % 8 % (0-9); NEUT % 64 % (31-73); PLATELET COUNT 205 x10^3/uL (140-400); RED BLOOD COUNT 5.41 x10^6/uL (3.50-5.40); RED CELL DISTRIBUTION WIDTH 13.6 % (11.5-14.5); WHITE BLOOD COUNT 7.9 x10^3/uL (4.0-11.0)
[2019-09-15 06:58] LABS: ALBUMIN 3.3 g/dL (3.4-5.0); ALBUMIN/GLOBULIN RATIO 0.9 (1.0-1.7); CALCIUM 8.7 mg/dL (8.5-10.1); CREATININE 0.5 mg/dL (0.6-1.0); GFR 124.6; POTASSIUM 3.9 mmol/L (3.5-5.1); TOTAL BILIRUBIN 0.5 mg/dL (0.2-1.0); TOTAL PROTEIN 6.9 g/dL (6.4-8.2)
[2019-09-15] MEDS: NICOTINE 21MG PATCH. TD SCH (08:31)
[2019-09-15] MEDS: amLODIPine BESYLATE 10 MG TABLET PO SCH (08:32)
[2019-09-15] MEDS: LISINOPRIL 20 MG TABLET PO SCH (08:32)
[2019-09-15] MEDS: DOCUSATE SODIUM 100 MG CAPSULE PO SCH ×2 (08:32→20:01)
[2019-09-15] MEDS: CITALOPRAM 20 MG TABLET. PO SCH (08:32)
[2019-09-15 15:42] VITALS: BP 169/77
--- NOTE | 2019-09-15 16:09 | TX PLAN ---
Interdisciplinary Tx Plan Admission Information Sep 10, 2019 at 23:13 Legal Status (on Admission): Voluntary DPOA/Guardian Name: Shyann Albert Contact Verified Code Status: Full Code Allergies: Coded Allergies: Penicillins (Verified Allergy, Unknown, 09/10/19) Diagnoses Primary Diagnosis: Schizoaffective D/O, Bipolar type Reasons for Admission: Delusions, Hallucinations, Suspicious/paranoid, Poor impulse control Problem in Patient's Words: She has to be non-compliant with medications and continues to cognitively decline. Additional Admission Comments: According to the intake, pt is not taking her medications correctly, things the audio visual technician was going to kill her, paranoid, delusional, auditory hallucinations telling her to do things she knows she shouldn't do, anxious, overwhelmed, doesn't always recognize spouse Problems Active Problems: Paranoia upon admission Anxious Restless Inactive Problems: Medication compliance Pt Strengths/Limitations Ability for Pender: Fair Cognitive Functioning/Ability: Fair Communication Skills/Ability: Fair Financial Resources: Fair Insight/Judgement: Poor Intellectual Ability: Fair Physical Health: Poor Social Skills: Fair Stability in Family: Fair Stability in School/Work: Poor Verbal Skills: Fair Discharge Criteria Discharge Criteria: Able meet basic life need, No need for close observ., Adequate arrangements @DC, Verbal commit aftercare, Verbal commit med comply, Improved behavior, Improved mood/thought Preliminary Discharge Plan Preliminary DC Plan: Other Other Arrangements: Decision needed for home versus placement Special Precautions Fall Risk: Low Initial D/C Plan The initial plan would be to have pt return home; however, pt prefers to be placed in a facility. Pt sister is okay with that. Identified Discharge Needs: Continued psychiatric/mental health services Currently Utilized Resources Currently Utilized Resources/P: Psychiatrist Neurologist Neurosurgeon Identified Problems/Hx/Goals Objectives/Short-Term Goals Short Term Goals: Dec. Hallucination/Delus, Improved Social Skills, Medication Stabilization, Promote Coping Skill Short Term Goals in Patient's: I want to be placed somewhere Interventions/Frequency Staff Interventions/Frequency&: Psychiatrist to assess pt at least 3x per week. Social Work to assess pt at least 2x per week. Nursing to assesss pt behavior, medications and complete 15 min checks daily. Encourage group participation or 1:1 engagement based off Activity Department assessment and goals. 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 Education: Did graduate from the 12th grade. Community Follow-up Con't PCP, Psychiatry and Neurology appointments. Treatment Plan Explained Patient/Homebirth Midwife had this treatment plan explained to him/her as indicated by the signature below and has been given the opportunity to ask questions and make suggestions: Date: Patient/Homebirth Midwife Signature: Patient/Homebirth Midwife Decline: No (Pt sister/DPOA involved in pt care.) MIRTA MONACO Sep 15, 2019 16:09
[2019-09-15] MEDS: ARIPiprazole 10 MG TABLET PO SCH (20:01)
[2019-09-15] MEDS: DONEPEZIL HCL 10 MG TABLET PO SCH (20:02)
[2019-09-15] MEDS: DIVALPROEX ER 500 MG TAB.ER.24H PO SCH (20:02)
--- NOTE | 2019-09-15 22:33 | PDOC ---
Exam Note: Carlos Note: Please also refer to the separate dictated note~for this date of service dictated separately.~Patient seen individually. Discussed the patient with Nursing staff reviewed the chart.~Reviewed interim history and current functioning. Reviewed vital signs,~Labs/ Radiology~and current medications noted below. Continue current treatment with the changes noted in the dictated addendum note Assessment: Vital Signs/I&O: Vital Signs Date Time Temp Pulse Resp B/P (MAP) Pulse Ox O2 Delivery O2 Flow Rate FiO2 09/15/19 15:42 98.0 58 20 169/77 (107) 95 Room Air I & O 09/14/19 09/14/19 09/15/19 15:00 23:00 07:00 Intake Total 960 ml 340 ml Balance 960 ml 340 ml Labs: Laboratory Tests Test 09/15/19 05:54 White Blood Count 7.9 x10^3/uL (4.0-11.0) Red Blood Count 5.41 x10^6/uL (3.50-5.40) H Hemoglobin 16.1 g/dL (12.0-15.5) H Hematocrit 48.2 % (36.0-47.0) H Mean Corpuscular Volume 89 fL (79-100) Mean Corpuscular Hemoglobin 30 pg (25-35) Mean Corpuscular Hemoglobin Concent 33 g/dL (31-37) Red Cell Distribution Width 13.6 % (11.5-14.5) Platelet Count 205 x10^3/uL (140-400) Neutrophils (%) (Auto) 64 % (31-73) Lymphocytes (%) (Auto) 27 % (24-48) Monocytes (%) (Auto) 8 % (0-9) Eosinophils (%) (Auto) 1 % (0-3) Basophils (%) (Auto) 0 % (0-3) Neutrophils # (Auto) 5.0 x10^3uL (1.8-7.7) Lymphocytes # (Auto) 2.1 x10^3/uL (1.0-4.8) Monocytes # (Auto) 0.6 x10^3/uL (0.0-1.1) Eosinophils # (Auto) 0.1 x10^3/uL (0.0-0.7) Basophils # (Auto) 0.0 x10^3/uL (0.0-0.2) Sodium Level 140 mmol/L (136-145) Potassium Level 3.9 mmol/L (3.5-5.1) Chloride Level 103 mmol/L (98-107) Carbon Dioxide Level 31 mmol/L (21-32) Anion Gap 6 (6-14) Blood Urea Nitrogen 11 mg/dL (7-20) Creatinine 0.5 mg/dL (0.6-1.0) L Estimated GFR (Cockcroft-Gault) 124.6 BUN/Creatinine Ratio 22 (6-20) H Glucose Level 109 mg/dL (70-99) H Calcium Level 8.7 mg/dL (8.5-10.1) Total Bilirubin 0.5 mg/dL (0.2-1.0) Aspartate Amino Transferase (AST) 12 U/L (15-37) L Alanine Aminotransferase (ALT) 14 U/L (14-59) Alkaline Phosphatase 105 U/L (46-116) Total Protein 6.9 g/dL (6.4-8.2) Albumin 3.3 g/dL (3.4-5.0) L Albumin/Globulin Ratio 0.9 (1.0-1.7) L Current Medications: I have reviewed the current psychotropics carefully including drug interactions. Risk benefit ratio favors no change other than as noted in my dictated progress note. Diagnosis: Problems: (1) Schizoaffective disorder, bipolar type (2) Mild cognitive impairment (3) Bipolar disorder, curr episode mixed, severe, with psychotic features (4) Impulse control disorder, unspecified (5) Anxiety disorder, unspecified POONAM TAO MD Sep 15, 2019 22:33
[2019-09-16 05:18] VITALS: BP 162/74
[2019-09-16] MEDS: LEVOTHYROXINE 50 MCG TABLET PO SCH (06:20)
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
[2019-09-16] MEDS: CITALOPRAM 20 MG TABLET. PO SCH (09:08)
[2019-09-16] MEDS: NICOTINE 21MG PATCH. TD SCH (09:08)
[2019-09-16] MEDS: amLODIPine BESYLATE 10 MG TABLET PO SCH (09:08)
[2019-09-16] MEDS: DOCUSATE SODIUM 100 MG CAPSULE PO SCH ×2 (09:08→19:52)
[2019-09-16] MEDS: LISINOPRIL 20 MG TABLET PO SCH (09:08)
--- NOTE | 2019-09-16 09:21 | PDOC ---
Exam Note: Carlos Note: This note is a late entry for 09/15/2019 covers elements not covered in my initial note. Subjective: The patient was seen face to face in the evening of 09/15/2019. Per Dianne GUILLORY, slept 7-1/4 hours previous night. She is compliant with medications. No hallucinations noted. She is quite obsessive and ruminative about what medications she is taking. Review of Systems: Ambulation impaired with walker. Speech is slow. No CV, , pulmonary, eye, ENT system symptoms on review. Mental Status Exam: Oriented to herself and situation. Speech has some latency, coherent. Abstraction is fair. Computation impaired. Language function intact. Mood and affect somewhat withdrawn. Laboratory Data: Reviewed. Impression: Schizoaffective disorder bipolar type, mixed with psychotic features. Mild cognitive impairment. Rest unchanged. Plan: No change from initial note including Depakote ER 500 mg p.o., Celexa 20 mg a day, Abilify 10 mg a day, and Aricept 10 mg h.s. Adjust further as clinically indicated. Assessment: Vital Signs/I&O: Vital Signs Date Time Temp Pulse Resp B/P (MAP) Pulse Ox O2 Delivery O2 Flow Rate FiO2 09/16/19 09:08 54 162/74 09/16/19 05:18 97.4 16 91 09/15/19 15:42 Room Air I & O 09/15/19 09/15/19 09/16/19 15:00 23:00 07:00 Intake Total 720 ml 600 ml Balance 720 ml 600 ml Current Medications: I have reviewed the current psychotropics carefully including drug interactions. Risk benefit ratio favors no change other than as noted in my dictated progress note. Diagnosis: Problems: (1) Schizoaffective disorder, bipolar type (2) Mild cognitive impairment (3) Bipolar disorder, curr episode mixed, severe, with psychotic features (4) Impulse control disorder, unspecified (5) Anxiety disorder, unspecified POONAM TAO MD Sep 16, 2019 09:21
[2019-09-16 15:49] VITALS: BP_SYST 148; BP_SYST 149; BP_DIAS 70; BP_DIAS 81
[2019-09-16] MEDS: DONEPEZIL HCL 10 MG TABLET PO SCH (19:51)
[2019-09-16] MEDS: DIVALPROEX ER 500 MG TAB.ER.24H PO SCH (19:52)
[2019-09-16] MEDS: ARIPiprazole 10 MG TABLET PO SCH (19:52)
--- NOTE | 2019-09-16 23:03 | PDOC ---
Exam Note: Carlos Note: Please also refer to the separate dictated note~for this date of service dictated separately.~Patient seen individually. Discussed the patient with Nursing staff reviewed the chart.~Reviewed interim history and current functioning. Reviewed vital signs,~Labs/ Radiology~and current medications noted below. Continue current treatment with the changes noted in the dictated addendum note Assessment: Vital Signs/I&O: Vital Signs Date Time Temp Pulse Resp B/P (MAP) Pulse Ox O2 Delivery O2 Flow Rate FiO2 09/16/19 15:49 97.6 61 16 148/70 (96) 96 09/15/19 15:42 Room Air I & O 09/15/19 09/15/19 09/16/19 15:00 23:00 07:00 Intake Total 720 ml 600 ml Balance 720 ml 600 ml Current Medications: I have reviewed the current psychotropics carefully including drug interactions. Risk benefit ratio favors no change other than as noted in my dictated progress note. Diagnosis: Problems: (1) Bipolar disorder, curr episode mixed, severe, with psychotic features (2) Schizoaffective disorder, bipolar type POONAM TAO MD Sep 16, 2019 23:03
[2019-09-17] MEDS ORDERED: ACET325T21 PO (01:53)
[2019-09-17] MEDS ORDERED: ARIP10TA9 PO (01:53)
[2019-09-17] MEDS ORDERED: MAG-95 PO (01:54)
[2019-09-17] MEDS ORDERED: DIVA500T17 PO (01:54)
[2019-09-17] MEDS ORDERED: MAGN24003 PO (01:55)
[2019-09-17] MEDS ORDERED: NICO1PAT21 TD (01:55)
[2019-09-17] MEDS ORDERED: METH57CR17 TP (01:55)
[2019-09-17 06:24] VITALS: BP 160/78
[2019-09-17 07:55] LABS: BASO % 0 % (0-3); EOS # 0.1 x10^3/uL (0.0-0.7); EOS % 1 % (0-3); HEMOGLOBIN 15.8 g/dL (12.0-15.5); LYMPH # 1.9 x10^3/uL (1.0-4.8); LYMPH % 29 % (24-48); MEAN CORPUSCULAR HEMOGLOBIN 30 pg (25-35); MEAN CORPUSCULAR HGB CONC 33 g/dL (31-37); MEAN CORPUSCULAR VOLUME 90 fL (79-100); MONO # 0.5 x10^3/uL (0.0-1.1); MONO % 7 % (0-9); NEUT # 4.3 x10^3uL (1.8-7.7); NEUT % 62 % (31-73); PLATELET COUNT 191 x10^3/uL (140-400); RED BLOOD COUNT 5.33 x10^6/uL (3.50-5.40); RED CELL DISTRIBUTION WIDTH 13.6 % (11.5-14.5); WHITE BLOOD COUNT 6.8 x10^3/uL (4.0-11.0)
[2019-09-17 08:18] LABS: VAL ACID 44 mcg/mL (50-100)
[2019-09-17] MEDS: CITALOPRAM 20 MG TABLET. PO SCH (08:18)
[2019-09-17] MEDS: DOCUSATE SODIUM 100 MG CAPSULE PO SCH (08:18)
[2019-09-17] MEDS: LEVOTHYROXINE 50 MCG TABLET PO SCH (08:18)
[2019-09-17 08:19] LABS: ALBUMIN 3.3 g/dL (3.4-5.0); ALBUMIN/GLOBULIN RATIO 0.9 (1.0-1.7); CALCIUM 8.7 mg/dL (8.5-10.1); CREATININE 0.6 mg/dL (0.6-1.0); POTASSIUM 4.1 mmol/L (3.5-5.1); TOTAL BILIRUBIN 0.6 mg/dL (0.2-1.0); TOTAL PROTEIN 6.9 g/dL (6.4-8.2)
[2019-09-17] MEDS: amLODIPine BESYLATE 10 MG TABLET PO SCH (08:19)
[2019-09-17] MEDS: LISINOPRIL 20 MG TABLET PO SCH (08:20)
[2019-09-17] MEDS: NICOTINE 21MG PATCH. TD SCH (08:21)
[2019-09-17 15:56] VITALS: BP 177/77
--- NOTE | 2019-09-17 22:12 | DS ---
DATE OF DISCHARGE: 09/17/2019 DISCHARGE SUMMARY/PSYCHIATRIC PROGRESS NOTE This note covers elements not covered in my initial note, 09/17/2019. IDENTIFYING DATA: The patient is a 64-year-old female referred to us from home by her primary care physician, psychiatrist on account of refusing her medications for schizoaffective disorder, bipolar type, with acute exacerbation. She is getting increasingly paranoid. She thought the chemical research technician was going to kill her. She was delusional, having auditory hallucinations, telling her to do things she knows she should not do. She is anxious, overwhelmed, did not always recognize her . Her sister was the DPOA, who facilitated this hospitalization. SIGNIFICANT FINDINGS AND CLINICAL COURSE: Following admission, the patient was seen daily individually by myself from a psychiatric standpoint, medical followup per Dr. Barrett/Dr. Faith. The patient was started on Depakote and adjusted to Depakote ER 500 mg p.o. at bedtime. Result is awaited at the time of this dictation. Abilify was increased from 5 mg a day to 10 mg a day on account of her psychotic symptoms and she was maintained on Celexa 20 mg a day, Aricept 10 mg a day. REVIEW OF SYSTEMS: Prior to discharge on 09/17/2019, ambulation impaired with walker. No CV, , pulmonary, eye system symptoms on review. MENTAL STATUS EXAMINATION: Oriented to herself, at times situation. Insight, judgment, recent memory is impaired. Language function intact. Mood and affect is less withdrawn, less paranoid, less psychotic. LABORATORY DATA: Reviewed. IMPRESSION: Schizoaffective disorder, bipolar type, mixed with psychotic features; major neurocognitive disorder, Alzheimer, vascular with depression, delusions, rest unchanged; anxiety disorder, unspecified; impulse control disorder, unspecified. DISCHARGE MEDICATIONS: Please refer to the MRAD. DISCHARGE INSTRUCTIONS: Outpatient psychiatric and medical followup as arranged prior to discharge. Time for discharge management greater than 30 minutes. POONAM TAO MD DR: SEMAJ/jacquelin JOB#: [id number] / [id number]
--- NOTE | 2019-09-17 22:31 | PDOC ---
Exam Note: Carlos Note: Please also refer to the separate dictated note~for this date of service dictated separately.~Patient seen individually. Discussed the patient with Nursing staff reviewed the chart.~Reviewed interim history and current functioning. Reviewed vital signs,~Labs/ Radiology~and current medications noted below. Continue current treatment with the changes noted in the dictated addendum note Assessment: Vital Signs/I&O: Vital Signs Date Time Temp Pulse Resp B/P (MAP) Pulse Ox O2 Delivery O2 Flow Rate FiO2 09/17/19 15:56 98.0 62 18 177/77 (110) 95 09/15/19 15:42 Room Air I & O 09/16/19 09/16/19 09/17/19 15:00 23:00 07:00 Intake Total 840 ml 240 ml Balance 840 ml 240 ml Labs: Laboratory Tests Test 09/17/19 07:18 White Blood Count 6.8 x10^3/uL (4.0-11.0) Red Blood Count 5.33 x10^6/uL (3.50-5.40) Hemoglobin 15.8 g/dL (12.0-15.5) H Hematocrit 48.0 % (36.0-47.0) H Mean Corpuscular Volume 90 fL (79-100) Mean Corpuscular Hemoglobin 30 pg (25-35) Mean Corpuscular Hemoglobin Concent 33 g/dL (31-37) Red Cell Distribution Width 13.6 % (11.5-14.5) Platelet Count 191 x10^3/uL (140-400) Neutrophils (%) (Auto) 62 % (31-73) Lymphocytes (%) (Auto) 29 % (24-48) Monocytes (%) (Auto) 7 % (0-9) Eosinophils (%) (Auto) 1 % (0-3) Basophils (%) (Auto) 0 % (0-3) Neutrophils # (Auto) 4.3 x10^3uL (1.8-7.7) Lymphocytes # (Auto) 1.9 x10^3/uL (1.0-4.8) Monocytes # (Auto) 0.5 x10^3/uL (0.0-1.1) Eosinophils # (Auto) 0.1 x10^3/uL (0.0-0.7) Basophils # (Auto) 0.0 x10^3/uL (0.0-0.2) Sodium Level 141 mmol/L (136-145) Potassium Level 4.1 mmol/L (3.5-5.1) Chloride Level 102 mmol/L (98-107) Carbon Dioxide Level 32 mmol/L (21-32) Anion Gap 7 (6-14) Blood Urea Nitrogen 10 mg/dL (7-20) Creatinine 0.6 mg/dL (0.6-1.0) Estimated GFR (Cockcroft-Gault) 101.0 BUN/Creatinine Ratio 17 (6-20) Glucose Level 97 mg/dL (70-99) Calcium Level 8.7 mg/dL (8.5-10.1) Total Bilirubin 0.6 mg/dL (0.2-1.0) Aspartate Amino Transferase (AST) 12 U/L (15-37) L Alanine Aminotransferase (ALT) 14 U/L (14-59) Alkaline Phosphatase 103 U/L (46-116) Total Protein 6.9 g/dL (6.4-8.2) Albumin 3.3 g/dL (3.4-5.0) L Albumin/Globulin Ratio 0.9 (1.0-1.7) L Valproic Acid Level 44 mcg/mL (50-100) L Valproic Acid Last Dose Date 09/16/19 Valproic Acid Last Dose Time 2100 Current Medications: I have reviewed the current psychotropics carefully including drug interactions. Risk benefit ratio favors no change other than as noted in my dictated progress note. Diagnosis: Problems: (1) Schizoaffective disorder, bipolar type (2) Bipolar disorder, curr episode mixed, severe, with psychotic features (3) Impulse control disorder, unspecified (4) Anxiety disorder, unspecified (5) Major neurocognitive disorder (6) Dementia in Alzheimer's disease with delusions (7) Dementia in Alzheimer's disease with depression (8) Dementia, vascular, with delusions (9) Dementia, vascular, with depression POONAM TAO MD Sep 17, 2019 22:31
--- NOTE | 2019-09-18 04:23 | PN ---
DATE: 09/16/2019 PSYCHIATRIC PROGRESS NOTE This late entry, 09/15, covers elements not covered in my initial note. SUBJECTIVE: I met with the patient evening of 09/15. The patient slept 6-1/2 hours previous night per PASTORA Dean. Also discussed with Karley, social service staff. Reportedly, [facility] has denied her authorization for ongoing hospitalization since she is not actively suicidal or homicidal and/or disruptive or danger to herself or others. The patient talks random things at time and spent an extended period of time in the evening. She had questions about her eyeglasses and teeth and other things not entirely related to her psychiatric symptoms. She had earlier in the day talked about having again. Valproic acid level will be done morning of 09/16. REVIEW OF SYSTEMS: Ambulation impaired with walker. No CV, , pulmonary, eye system symptoms on review. MENTAL STATUS EXAM: Oriented to herself and situation. Speech has some latency, coherent. Abstraction fair, computation impaired, language function intact. Mood and affect withdrawn. LABORATORY DATA: Reviewed. IMPRESSION: Unchanged from initial note. PLAN: No change from initial note. Possibly transition to a lower level of care on 09/16. POONAM TAO MD DR: SEMAJ/jacquelin JOB#: [id number] / [id number]
== END 2019-09-17 16:30 | disposition home or self-care (01) | DRG 885 ==
LOC: ER 19:10 → GEROPSY 23:13
PROVIDERS: ADMIT Psychiatry & Neurology Psychiatry; ATTEND Psychiatry & Neurology Psychiatry
DX: F25.0 Schizoaffective disorder, bipolar type (principal); F01.50 Vascular dementia, unspecified severity, without behavioral disturbance, psychotic disturbance, mood disturbance, and anxiety; E03.9 Hypothyroidism, unspecified; E11.9 Type 2 diabetes mellitus without complications; E66.9 Obesity, unspecified; F02.80 Dementia in other diseases classified elsewhere, unspecified severity, without behavioral disturbance, psychotic disturbance, mood disturbance, and anxiety; F41.9 Anxiety disorder, unspecified; F63.9 Impulse disorder, unspecified; G30.9 Alzheimer's disease, unspecified; G47.00 Insomnia, unspecified; G89.29 Other chronic pain; I10 Essential (primary) hypertension; J44.9 Chronic obstructive pulmonary disease, unspecified; K80.20 Calculus of gallbladder without cholecystitis without obstruction; M48.061 Spinal stenosis, lumbar region without neurogenic claudication; M54.40 Lumbago with sciatica, unspecified side; R29.6 Repeated falls; Z87.891 Personal history of nicotine dependence; K21.9 Gastro-esophageal reflux disease without esophagitis; K59.09 Other constipation; M19.90 Unspecified osteoarthritis, unspecified site; Z68.37 Body mass index [BMI] 37.0-37.9, adult
CPT/HCPCS: 36415; 70450; 71045; 71275; 72125; 72131; 74174; 80048; 80053; 80061; 80076; 80164; 80307; 81001; 82306; 82550; 82607; 83036; 83540; 83550; 83690; 83735; 83880; 84436; 84443; 84480; 84484; 85025; 85379; 85610; 85730; 86140; 86592; 93005; 96360; 96361; 99406; J7120; Q9967; 97116; 97530; 99285-25